=== PATIENT | male | born 1960 | race Caucasian/White ===

== ENCOUNTER 2019-03-28 21:44 | Emergency (ER) | payer OTHER ==
[2019-03-28 22:52] LABS: Bilirubin Large (Negative); Blood, Urine Large (Negative); Glucose, Urine (Dipstick) 100 mg/dL (Negative); Leukocyte Large (Negative); Nitrite Positive (Negative); Protein, Urine (Dipstick) > or equal to 300 mg/dL (Neg-Trace); Specific Gravity, Urine 1.015 (1.005-1.030); pH, Urine 8.5 (5.0-9.0)
[2019-03-28 22:54] LABS: INR-International Normal Ratio 1.2; Prothrombin Time 14.9 SEC (12.0-14.7)
[2019-03-28 23:00] LABS: Clarity Cloudy (Clear)
[2019-03-28 23:01] LABS: Bacteria/HPF None Seen HPF (None Seen); RBC/HPF GREATER THAN 50-TNTC HPF (0-3); Squamous Epithelial None Seen HPF (0-3)
[2019-03-28 23:04] LABS: #Basophils 0.1 thou/uL (0.0-0.2); #Eosinphils 0.3 thou/uL (0.0-0.7); #Lymphocytes 2.3 thou/uL (1.20-3.40); #Monocytes 0.8 thou/uL (0.11-0.59); #Neutrophils 6.1 thou/uL (1.40-6.50); %Eosinophils 3.2 % (0.0-10.0); %Lymphocytes 23.6 % (21.0-51.0); %Monocytes 8.3 % (0.0-10.0); %Neutrophils 63.9 % (42.0-75.0); Hemoglobin 14.1 g/dL (14.0-18.0); Mean Corpuscular HGB CONC 33.9 g/dL (32.0-36.0); Mean Corpuscular Hemoglobin 28.4 pg (27.0-31.0); Mean Corpuscular Volume 83.9 fL (78.0-98.0); Mean Platelet Volume 6.4 fL (7.4-10.4); PTT 32.6 SEC (22.9-36.1); Platelet Count 110 thou/uL (130-400); Platelet Morphology Comment Appears Decreased; RBC Distribution Width 12.1 % (11.5-14.5); RBC Morphology Normal; Red Blood Cell (RBC) Count 4.94 mill/uL (4.70-6.10); White Blood Cell (WBC) Count 9.5 thou/uL (4.8-10.8)
[2019-03-28 23:05] LABS: ALT (SGPT) 22 U/L (8-55); AST (SGOT) 29 U/L (5-34); Albumin 3.6 g/dL (3.5-5.0); Alkaline Phosphatase 76 U/L (40-150); Anion Gap 15 mmol/L (10-20); BUN (Urea Nitrogen) 12 mg/dL (8.4-25.7); Calc. Creatinine Clearance 0 mL/min (70-130); Calcium 9.1 mg/dL (7.8-10.44); Carbon Dioxide 25 mmol/L (22-29); Chloride 106 mmol/L (98-107); Estimated GFR-MDRD Greater than 90; Globulin 2.9 g/dL (2.4-3.5); Glucose 95 mg/dL (70-105); Potassium 3.5 mmol/L (3.5-5.1); Protein, Total 6.5 g/dL (6.0-8.3); Sodium 142 mmol/L (136-145)
== END 2019-03-29 01:37 | disposition short-term general hospital (02) ==
LOC: MADERS 21:44
DX: R31.0 Gross hematuria (principal); K21.9 Gastro-esophageal reflux disease without esophagitis; F03.90 Unspecified dementia, unspecified severity, without behavioral disturbance, psychotic disturbance, mood disturbance, and anxiety; F17.210 Nicotine dependence, cigarettes, uncomplicated; F20.9 Schizophrenia, unspecified; Z79.899 Other long term (current) drug therapy; Z79.82 Long term (current) use of aspirin
CPT/HCPCS: 36415; 51702; 80053; 81003; 81015; 85025; 85610; 85730; 87086

== ENCOUNTER 2019-08-31 12:10 | Emergency (ER) | payer OTHER ==
--- NOTE | 2019-08-31 12:40 | RAD ---
CHEST 2 VIEWS: HISTORY: :Altered mental status. Comparison: 08/10/2014. FINDINGS: Lungs: Mild interstitial opacification at the lower lung zones. Cardiac silhouette:Accentuated by portable technique, grossly stable. Pulmonary vessels: Normal. Pleural Spaces: Mild haziness at the inferior hemithoraces. Pneumothorax: None. Osseous abnormalities: None of acuity. IMPRESSION: Mild interstitial prominence lower lung zones and slight haziness of each lower hemithorax. This coul d be on the basis of interstitial edema and mild pleural fluid. Correlate for patient's fluid status, and as necessary imaging follow-up may be obtained. Transcribed Date/Time: 08/31/2019 1:24 PM
--- NOTE | 2019-08-31 12:53 | CT ---
CT Brain WO Con: 08/31/2019 12:27 PM CLINICAL HISTORY: Altered mental status. COMPARISON: 05/19/2016 FINDINGS: Hemorrhage: None. Ventricular system: Stable ex vacuo dilatation. Cerebral parenchyma: Redemonstration of prominent bifrontal encephalomalacia, bitemporal encephalomal acia, and gliosis of the bilateral frontoparietal lobes, near the vertex. Midline shift: None. Mass: No mass effect. Calvarium: Normal. Visualized Paranasal sinuses: Partially imaged opacification at the posterior right maxillary sinus, inferiorly, which may relate to retention cyst.. IMPRESSION: No acute intracranial hemorrhage or mass effect. Redemonstration of multifocal encephalomalacia of the bilateral cerebral hemispheres, with associated ex vacuo dilatation.
[2019-08-31 13:08] LABS: INR-International Normal Ratio 1.2; PTT 34.3 SEC (22.9-36.1); Prothrombin Time 15.4 SEC (12.0-14.7)
[2019-08-31 13:16] LABS: Acetaminophen Less than 6.0 mcg/mL (10.0-30.0); Alcohol Less than 10 mg/dL (Less than 10); Salicylate Less than 8.0 mg/dL (15.0-30.0)
[2019-08-31 13:18] LABS: ALT (SGPT) 15 U/L (8-55); AST (SGOT) 26 U/L (5-34); Albumin 3.3 g/dL (3.4-4.8); Alkaline Phosphatase 70 U/L (40-110); Anion Gap 12 mmol/L (10-20); BUN (Urea Nitrogen) 14 mg/dL (8.4-25.7); CK (CPK) 65 U/L (30-200); Calc. Creatinine Clearance 0 mL/min (70-130); Calcium 8.6 mg/dL (7.8-10.44); Carbon Dioxide 26 mmol/L (23-31); Chloride 110 mmol/L (98-107); Estimated GFR-MDRD Greater than 90; Glucose 88 mg/dL (80-115); Potassium 4.3 mmol/L (3.5-5.1); Protein, Total 6.3 g/dL (5.8-8.1); Sodium 144 mmol/L (136-145)
[2019-08-31 13:22] LABS: #Basophils 0.1 thou/uL (0.0-0.2); #Eosinphils 0.1 thou/uL (0.0-0.7); #Lymphocytes 1.4 thou/uL (1.20-3.40); #Monocytes 0.6 thou/uL (0.11-0.59); #Neutrophils 3.1 thou/uL (1.40-6.50); %Eosinophils 2.5 % (0.0-10.0); %Lymphocytes 26.9 % (21.0-51.0); %Monocytes 11.1 % (0.0-10.0); %Neutrophils 58.5 % (42.0-75.0); Eosinophils 3 % (0-10); Hemoglobin 12.5 g/dL (14.0-18.0); Lymphocytes 18 % (21-51); MDiff Complete? YES; Mean Corpuscular HGB CONC 33.2 g/dL (32.0-36.0); Mean Corpuscular Hemoglobin 28.7 pg (27.0-31.0); Mean Corpuscular Volume 86.3 fL (78.0-98.0); Mean Platelet Volume 5.9 fL (7.4-10.4); Monocytes 7 % (0-10); Neutrophil 65 % (42-75); Platelet Count 81 thou/uL (130-400); Platelet Morphology Comment Appears Decreased; RBC Distribution Width 12.2 % (11.5-14.5); RBC Morphology Normal; Reactive Lymphocytes 7 % (0-10); Red Blood Cell (RBC) Count 4.35 mill/uL (4.70-6.10); White Blood Cell (WBC) Count 5.3 thou/uL (4.8-10.8)
== END 2019-08-31 16:51 ==
LOC: MADERS 12:10
DX: R41.82 Altered mental status, unspecified (principal); K21.9 Gastro-esophageal reflux disease without esophagitis; F20.9 Schizophrenia, unspecified; F03.90 Unspecified dementia, unspecified severity, without behavioral disturbance, psychotic disturbance, mood disturbance, and anxiety; G47.00 Insomnia, unspecified; F32.9 Major depressive disorder, single episode, unspecified; F17.210 Nicotine dependence, cigarettes, uncomplicated; Z79.82 Long term (current) use of aspirin; Z79.899 Other long term (current) drug therapy
CPT/HCPCS: 36415; 70450; 71045; 80053; 80307; 82140; 82550; 83605; 84484; 85025; 85610; 85730; 93005

== ENCOUNTER 2020-05-12 13:34 | Emergency (ER) | payer OTHER ==
[~2020-05-12 13:34] MED LIST: Iopamidol 370 76% 100 ML VIAL ONE
[2020-05-12 14:12] LABS: Bilirubin Moderate (Negative); Blood, Urine Large (Negative); Clarity Cloudy (Clear); Glucose, Urine (Dipstick) Negative (Negative); Leukocyte Negative (Negative); Nitrite Positive (Negative); Protein, Urine (Dipstick) > or equal to 300 mg/dL (Neg-Trace)
[2020-05-12 14:22] LABS: RBC/HPF Greater than 50 HPF (0-3)
[2020-05-12 14:23] LABS: Bacteria/HPF Rare-Few HPF (None Seen)
[2020-05-12] MEDS ORDERED: Morphine 4 MG/ML VIAL ONE (14:42)
[2020-05-12] MEDS ORDERED: Morphine 2 MG/ML SYRINGE ONE (14:42)
[2020-05-12 14:54] LABS: #Basophils 0.1 thou/uL (0.0-0.2); #Eosinphils 0.3 thou/uL (0.0-0.7); #Lymphocytes 1.4 thou/uL (1.20-3.40); #Monocytes 0.6 thou/uL (0.11-0.59); #Neutrophils 4.1 thou/uL (1.40-6.50); %Basophils 1.1 % (0.0-1.0); %Eosinophils 4.5 % (0.0-10.0); %Lymphocytes 21.8 % (21.0-51.0); %Monocytes 8.6 % (0.0-10.0); %Neutrophils 63.9 % (42.0-75.0); Hemoglobin 9.6 g/dL (14.0-18.0); Hypochromia SLIGHT = 6-15 cells (100X) (0-5/hpf); MDiff Complete? YES; Mean Corpuscular HGB CONC 30.6 g/dL (32.0-36.0); Mean Platelet Volume 6.2 fL (7.4-10.4); Platelet Count 99 thou/uL (130-400); Platelet Morphology Comment Appears Decreased; RBC Distribution Width 14.4 % (11.5-14.5); Red Blood Cell (RBC) Count 3.69 mill/uL (4.70-6.10); White Blood Cell (WBC) Count 6.4 thou/uL (4.8-10.8)
[2020-05-12 15:03] LABS: ALT (SGPT) 17 U/L (8-55); AST (SGOT) 28 U/L (5-34); Albumin 2.9 g/dL (3.4-4.8); Alkaline Phosphatase 67 U/L (40-110); Anion Gap 13 mmol/L (10-20); BUN (Urea Nitrogen) 13 mg/dL (8.4-25.7); Bilirubin, Total 0.8 mg/dL (0.2-1.2); Calc. Creatinine Clearance 0 mL/min (70-130); Calcium 8.6 mg/dL (7.8-10.44); Carbon Dioxide 27 mmol/L (23-31); Chloride 107 mmol/L (98-107); Estimated GFR-MDRD Greater than 90; Globulin 3.8 g/dL (2.4-3.5); Glucose 93 mg/dL (80-115); Lipase 9 U/L (8-78); Potassium 3.8 mmol/L (3.5-5.1); Protein, Total 6.7 g/dL (5.8-8.1); Sodium 143 mmol/L (136-145)
--- NOTE | 2020-05-12 19:54 | CT ---
CT ABDOMEN AND PELVIS WITH CONTRAST: 05/12/20 HISTORY: Abdominal pain. Injury. COMPARISON: CT 01/18/25 with contrast. Noncontrast 03/29/29. FINDINGS: The lung bases are relatively clear. No pericardial effusion. The aortic contour is normal. There is abnormal thickening and gas within the urinary bladder. There is a large mass in the superior pole of the right kidney with internal calcifications. The ramy rity of this mass is endophytic and measures up to 6 cm in size. There is a poorly defined mass in th e posterior aspect right lobe of the liver concerning for metastatic focus. There is cholelithiasis. Spleen is enlarged. 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 No acute osseous abnormality. IMPRESSION: 1. Large right renal mass measuring up to 6 cm size with concern for right renal vein invasion. 2. Ill-defined mass posterior aspect right lobe of liver near the dome concerning for metastatic focus vs. transient hepatic attenation difference. Liver protocol MRI recommended. 3. Splenomegaly and portal hypertension. 4. Cholelithiasis without cholecystitis. Code CR - ER physician notified of findings via telephone at 3:54 p.m. POS: HOME
== END 2020-05-12 17:07 | disposition short-term general hospital (02) ==
LOC: MADERS 13:34
DX: C64.2 Malignant neoplasm of left kidney, except renal pelvis (principal); R31.9 Hematuria, unspecified; G89.29 Other chronic pain; K74.60 Unspecified cirrhosis of liver; K21.9 Gastro-esophageal reflux disease without esophagitis; F20.9 Schizophrenia, unspecified; F17.210 Nicotine dependence, cigarettes, uncomplicated; Z79.899 Other long term (current) drug therapy; Z79.82 Long term (current) use of aspirin
CPT/HCPCS: 74177; 80053; 81003; 81015; 83605; 83690; 85025; 96374; J2270; Q9967

== ENCOUNTER 2020-08-04 13:55 | Emergency (ER) | payer OTHER ==
[2020-08-04] MEDS ORDERED: Ibuprofen 400 MG TAB ONE (14:43)
[2020-08-04 15:08] LABS: Blood, Urine Large (Negative); Clarity Cloudy (Clear); Glucose, Urine (Dipstick) Negative (Negative); Ketone, Urine 15 mg/dL (Negative)
[2020-08-04 15:09] LABS: Bilirubin Unable to Interpret (Negative); Leukocyte Unable to Interpret (Negative); Nitrite Unable to Interpret (Negative); Specific Gravity, Urine 1.015 (1.002-1.036); Urobilinogen UNABLE TO INTERPRET mg/dL (Less than 2)
[2020-08-04 15:11] LABS: Protein, Urine (Dipstick) > or equal to 300 mg/dL (Neg-Trace)
[2020-08-04 15:15] LABS: RBC/HPF Greater than 50 HPF (0-3); WBC/HPF Greater Than 50 HPF (0-3)
[2020-08-04 15:16] LABS: Squamous Epithelial None Seen HPF (0-3)
[2020-08-04 15:17] LABS: Bacteria/HPF 1+ HPF (None Seen)
== END 2020-08-04 17:35 ==
LOC: MADERS 13:55
DX: R31.0 Gross hematuria (principal); F20.9 Schizophrenia, unspecified; K21.9 Gastro-esophageal reflux disease without esophagitis; F03.90 Unspecified dementia, unspecified severity, without behavioral disturbance, psychotic disturbance, mood disturbance, and anxiety; F32.9 Major depressive disorder, single episode, unspecified; F17.210 Nicotine dependence, cigarettes, uncomplicated; G47.00 Insomnia, unspecified
CPT/HCPCS: 51702; 81003; 81015; 87086

== ENCOUNTER 2020-10-20 10:09 | Outpatient (CLI) | payer OTHER ==
[2020-10-20 10:30] LABS: Glucose, Urine (Dipstick) Negative (Negative); Ketone, Urine 15 mg/dL (Negative)
[2020-10-20 10:31] LABS: Bilirubin Moderate (Negative); Blood, Urine Large (Negative); Clarity Cloudy (Clear)
[2020-10-20 10:32] LABS: Specific Gravity, Urine 1.023 (1.002-1.036)
[2020-10-20 10:33] LABS: Leukocyte Small Leu/uL (Negative)
[2020-10-20 10:34] LABS: Nitrite Unable to Interpret (Negative)
[2020-10-20 10:35] LABS: Protein, Urine (Dipstick) 100 mg/dL (Neg-Trace)
[2020-10-20 10:37] LABS: RBC/HPF Greater than 50 HPF (0-3)
[2020-10-20 10:39] LABS: Bacteria/HPF 1+ HPF (None Seen); Squamous Epithelial 0-3 HPF (0-3)
== END 2020-10-20 10:10 | disposition home or self-care (01) ==
LOC: MADLAB 10:09
PROVIDERS: ATTEND Family Medicine
DX: R31.9 Hematuria, unspecified (principal)
CPT/HCPCS: 81001; 87086